=== PATIENT | male | born 1950 | race Caucasian/White ===

== ENCOUNTER 2020-08-12 12:17 | Observation (INO) | payer OTHER ==
[2020-08-12 13:18] LABS: Basophils % 1.3 % (0-1.3); Hematocrit 43.6 % (39.6-49.0); Lymphocytes % 28.5 % (15.3-44.8); MPV 8.9 fL (7.6-11.3); RBC Red Blood Cell Count 4.91 M/uL (4.33-5.43)
[2020-08-12 13:19] LABS: Protime INR 0.98
[2020-08-12] MEDS ORDERED: METOPROLOL TAR 50 MG TAB ONE (13:25)
[2020-08-12] MEDS ORDERED: ENOXAPARIN 100 MG/ML SYR SQ ONE (13:25)
[2020-08-12] MEDS ORDERED: ASPIRIN 81 MG CHEWABLE TABLET ONE (13:25)
[2020-08-12] MEDS ORDERED: FAMOTIDINE 20 MG/2 ML VIAL IV ONE (13:25)
[2020-08-12] MEDS ORDERED: NA CHLORIDE 0.9% 1,000 ML ONE (13:26)
[2020-08-12 13:34] LABS: ALT/SGPT 32 U/L (12-78); AST/SGOT 19 U/L (15-37); Albumin 3.8 g/dL (3.4-5.0); Alkaline Phosphatase 74 U/L (45-117); BUN Blood Urea Nitrogen 20 mg/dL (7-18); Bicarbonate 26 mmol/L (21-32); Bilirubin Direct 0.1 mg/dL (0-0.2); Bilirubin Total 0.5 mg/dL (0.2-1.0); Glucose Level 251 mg/dL (74-106); Lipase 194 U/L (73-393); Magnesium 1.8 mg/dL (1.8-2.4); NT PRO-BNP 81 pg/mL (<125); Potassium 4.1 mmol/L (3.5-5.1); Protein, Total 7.6 g/dL (6.4-8.2); Sodium Level 138 mmol/L (136-145); Troponin (Emerg Dept Use Only) < 0.02 ng/mL (0.0-0.045)
--- NOTE | 2020-08-12 13:36 | ER ---
Nurse's Notes [facility] Name: Tyler Anthony Jr Age: 70 yrs Sex: Male : 1950 Arrival Date: 08/12/2020 Time: 12:19 Bed 17 Private MD: Diagnosis: Chest pain, unspecified;Angina pectoris;Type 2 diabetes mellitus;Essential (primary) hypertension Presentation: 08/12 12:25 Chief complaint: Patient states: L sided CP that began 3-4 days ago. Pt reports that he ss was remodeling and thought maybe it was a pulled muscle, but the pain has not gone away. Pt also reports that he has had more sinus drainage and coughing in the morning for the past 3-4 days as well. Coronavirus screen: Client denies travel out of the [place] in the last 14 days. Ebola Screen: Patient denies exposure to infectious person. Patient denies travel to an Ebola-affected area in the 21 days before illness onset. Initial Sepsis Screen: Does the patient meet any 2 criteria? No. Patient's initial sepsis screen is negative. Does the patient have a suspected source of infection? No. Patient's initial sepsis screen is negative. Risk Assessment: Do you want to hurt yourself or someone else? Patient reports no desire to harm self or others. Onset of symptoms was August 09, 2020. 12:25 Method Of Arrival: Ambulatory ss 12:25 Acuity: HEYDI 3 ss Triage Assessment: 12:30 General: Appears in no apparent distress. comfortable, Behavior is cooperative, bp appropriate for age, anxious. Pain: Complains of pain in left lateral posterior chest and left lateral anterior chest. EENT: No deficits noted. Neuro: No deficits noted. Cardiovascular: Rhythm is sinus rhythm. Respiratory: No deficits noted. GI: No signs and/or symptoms were reported involving the gastrointestinal system. : No signs and/or symptoms were reported regarding the genitourinary system. Derm: No deficits noted. Musculoskeletal: No deficits noted. Historical: - Allergies: 12: No Known Allergies; ss - Home Meds: : Levoxyl 75 mcg Oral tab 1 tab once daily [Active]; allopurinol 300 mg Oral tab 1 tab ss once daily [Active]; repaglinide 2 mg oral tab [Active]; rosuvastatin 20 mg oral tab 1 tab once daily [Active]; Xiqduo [Active]; Vascepa 1 gram oral cap 2 caps 2 times per day [Active]; - PMHx: 12:31 Hypertension; Diabetes - NIDDM; High Cholesterol; Gout; ss - PSHx: 12:31 Appendectomy; Tonsillectomy; ss - Immunization history:: Adult Immunizations up to date. - Social history:: Smoking status: Patient denies any tobacco usage or history of. - Family history:: not pertinent. Screenin:30 Abuse screen: Denies threats or abuse. Denies injuries from another. Nutritional bp screening: No deficits noted. Tuberculosis screening: No symptoms or risk factors identified. Fall Risk None identified. Assessment: 12:30 General: SEE TRIAGE NOTE. bp 13:30 Reassessment: ADMIT INITIATED. Pain: Denies pain. Cardiovascular: Patient's skin is bp warm and dry. Rhythm is sinus rhythm. 14:30 Reassessment: No changes from previously documented assessment. Patient and/or family bp updated on plan of care and expected duration. Pain level reassessed. Patient is alert, oriented x 3, equal unlabored respirations, skin warm/dry/pink. ADMIT IN PROCESS. 16:07 Reassessment: Patient appears in no apparent distress at this time. No changes from bp previously documented assessment. Patient and/or family updated on plan of care and expected duration. Pain level reassessed. REPEAT CARDIAC ENZYMES SENT. ADMIT IN PROCESS. 18:00 Reassessment: Patient appears in no apparent distress at this time. No changes from bp previously documented assessment. Patient and/or family updated on plan of care and expected duration. Pain level reassessed. Patient is alert, oriented x 3, equal unlabored respirations, skin warm/dry/pink. ADMIT IN PROCESS. Vital Signs: 12:25 BP 181 / 98; Pulse 79; Resp 16; Temp 97.3(TE); Pulse Ox 99% on R/A; Weight 106.59 kg; Height 5 ft. 9 in. (175.26 cm); Pain 6/10; 13:30 BP 161 / 91; Pulse 74; Resp 22; Pulse Ox 95% ; bp 14:30 BP 153 / 87; Pulse 61; Resp 23; Pulse Ox 96% ; bp 15:00 BP 153 / 86; Pulse 60; Resp 18; Pulse Ox 98% ; bp 16:00 BP 144 / 77; Pulse 57; Resp 18; Pulse Ox 96% ; bp 18:00 BP 156 / 86; Pulse 61; Resp 18; Pulse Ox 96% ; bp 19:00 BP 162 / 81; Pulse 72; Resp 16; Pulse Ox 96% on R/A; jb4 20:00 BP 150 / 76; Pulse 78; Resp 16; Pulse Ox 98% on R/A; jb4 21:00 BP 160 / 76; Pulse 74; Resp 15; Pulse Ox 99% on R/A; jb4 12:25 Body Mass Index 34.70 (106.59 kg, 175.26 cm) ED Course: 12:19 Patient arrived in ED. ds1 12:27 Triage completed. 12:30 Patient has correct armband on for positive identification. Placed in gown. Bed in low bp position. Call light in reach. Side rails up X2. Adult w/ patient. groundwater monitoring technician on. Pulse ox on. NIBP on. 12:31 Arm band placed on right wrist. ss 12:36 Elmer Salgado, MINDA is Primary Nurse. bp 12:38 Govind Up MD is Attending Physician. wes 13:05 Inserted saline lock: 20 gauge in right forearm, using aseptic technique. Blood bp collected. 13:35 Teena Marks MD is Hospitalizing Provider. [facility] 13:59 XRAY Chest (1 view) In Process Unspecified. EDMS 19:30 Primary Nurse role handed off by Elmer Salgado, RN mw2 19:49 Abner Hunter, MINDA is Primary Nurse. jb4 21:17 No provider procedures requiring assistance completed. Patient admitted, IV remains in sg place. intact, No redness/swelling at site. Patient maintains SpO2 saturation greater than 95% on room air. Administered Medications: 13:05 Drug: NS 0.9% 1000 ml Route: IV; Rate: 125 ml/hr; Site: right forearm; bp 13:05 Drug: Aspirin Chewable Tablet 324 mg Route: PO; bp 16:06 Follow up: Response: No adverse reaction bp 13:05 Drug: Lopressor (metoprolol TARTRATE) 50 mg Route: PO; bp 13:05 Drug: Lovenox 100 mg Route: Sub-Q; Site: right lower abdomen; bp 13:05 Drug: Pepcid 20 mg Route: IVP; Site: right forearm; bp Outcome: 13:35 Decision to Hospitalize by Provider. wes 21:17 Admitted to Tele accompanied by tech, via stretcher, room 213, with chart, Report sg called to Rene PERLA 21:17 Condition: stable 21:17 Instructed on the need for admit, safety practices, Demonstrated understanding of instructions, follow-up care. 21:29 Patient left the ED. mw2 Signatures: Dispatcher [employer] EDMS Cb Robert RN RN Govind Walker MD MD cha Sanford, Demi ds1 Ling Dowell RN RN ss Abner Hunter, RN RN jb4 Elmer Salgado RN RN Mercedes Burch mw2
[2020-08-12] MEDS ORDERED: ALPRAZOLAM 0.25 MG TABLET PO PRN (13:44)
[2020-08-12] MEDS ORDERED: MORPHINE 4 MG/ML SYR IV PRN (13:44)
[2020-08-12] MEDS ORDERED: ACETAMINOPHEN 500 MG TAB PO PRN (13:44)
--- NOTE | 2020-08-12 14:05 | RAD REPORT ---
EXAM DESCRIPTION: RAD - Chest Single View - 08/12/2020 1:59 pm CLINICAL HISTORY: CHEST PAIN Chest pain. COMPARISON: No comparisons FINDINGS: Portable technique limits examination quality. The lungs are grossly clear. The heart is normal in size. No displaced fractures. IMPRESSION: No acute intrathoracic process suspected.
[2020-08-12] MEDS: ENOXAPARIN 40 MG/0.4 ML SQ SCH (15:00)
--- NOTE | 2020-08-12 21:31 | EDPHYS ---
Physician Documentation [facility] Name: Tyler Anthony Jr Age: 70 yrs Sex: Male : 1950 Arrival Date: 08/12/2020 Time: 12:19 Bed 17 Private MD: ED Physician Govind Up HPI: 08/12 13:30 This 70 yrs old Male presents to ER via Ambulatory with complaints of Chest wes Pain. 13:30 The patient or guardian reports chest pain that is located primarily in the anterior wes chest wall, bilaterally. Onset: 3 day(s) ago. The pain does not radiate. Associated signs and symptoms: Pertinent positives: diaphoresis, shortness of breath. The chest pain is described as a pressure, sharp. Duration: The patient or guardian reports multiple episodes, that wax and wane. Modifying factors: The symptoms are alleviated by application of supplemental oxygen, remaining still, the symptoms are aggravated by exertion. Severity of pain: At its worst the pain was mild moderate in the emergency department the pain has improved moderately. The patient has not experienced similar symptoms in the past. Historical: - Allergies: 12:31 No Known Allergies; ss - Home Meds: 12:31 Levoxyl 75 mcg Oral tab 1 tab once daily [Active]; allopurinol 300 mg Oral tab 1 tab ss once daily [Active]; repaglinide 2 mg oral tab [Active]; rosuvastatin 20 mg oral tab 1 tab once daily [Active]; Xiqduo [Active]; Vascepa 1 gram oral cap 2 caps 2 times per day [Active]; - PMHx: 12:31 Hypertension; Diabetes - NIDDM; High Cholesterol; Gout; ss - PSHx: 12:31 Appendectomy; Tonsillectomy; ss - Immunization history:: Adult Immunizations up to date. - Social history:: Smoking status: Patient denies any tobacco usage or history of. - Family history:: not pertinent. ROS: 13:30 Constitutional: Negative for fever, chills, and weight loss, Eyes: Negative for injury, wes pain, redness, and discharge, ENT: Negative for injury, pain, and discharge, Neck: Negative for injury, pain, and swelling, Respiratory: Negative for shortness of breath, cough, wheezing, and pleuritic chest pain, Abdomen/GI: Negative for abdominal pain, nausea, vomiting, diarrhea, and constipation, Back: Negative for injury and pain, : Negative for injury, bleeding, discharge, and swelling, MS/Extremity: Negative for injury and deformity, Skin: Negative for injury, rash, and discoloration, Neuro: Negative for headache, weakness, numbness, tingling, and seizure, Psych: Negative for depression, anxiety, suicide ideation, homicidal ideation, and hallucinations, Allergy/Immunology: Negative for hives, rash, and allergies, Endocrine: Negative for neck swelling, polydipsia, polyuria, polyphagia, and marked weight changes, Hematologic/Lymphatic: Negative for swollen nodes, abnormal bleeding, and unusual bruising. 13:30 Cardiovascular: Positive for chest pain, of the anterior aspect of left upper chest, left lateral anterior chest, left lateral posterior chest and left breast. Exam: 13:30 Constitutional: This is a well developed, well nourished patient who is awake, alert, wes and in no acute distress. Head/Face: Normocephalic, atraumatic. Eyes: Pupils equal round and reactive to light, extra-ocular motions intact. Lids and lashes normal. Conjunctiva and sclera are non-icteric and not injected. Cornea within normal limits. Periorbital areas with no swelling, redness, or edema. ENT: Nares patent. No nasal discharge, no septal abnormalities noted. Tympanic membranes are normal and external auditory canals are clear. Oropharynx with no redness, swelling, or masses, exudates, or evidence of obstruction, uvula midline. Mucous membranes moist. Neck: Trachea midline, no thyromegaly or masses palpated, and no cervical lymphadenopathy. Supple, full range of motion without nuchal rigidity, or vertebral point tenderness. No Meningismus. Chest/axilla: Normal chest wall appearance and motion. Nontender with no deformity. No lesions are appreciated. Cardiovascular: Regular rate and rhythm with a normal S1 and S2. No gallops, murmurs, or rubs. Normal PMI, no JVD. No pulse deficits. Respiratory: Lungs have equal breath sounds bilaterally, clear to auscultation and percussion. No rales, rhonchi or wheezes noted. No increased work of breathing, no retractions or nasal flaring. Abdomen/GI: Soft, non-tender, with normal bowel sounds. No distension or tympany. No guarding or rebound. No evidence of tenderness throughout. Back: No spinal tenderness. No costovertebral tenderness. Full range of motion. Male : Normal genitalia with no discharge or lesions. Skin: Warm, dry with normal turgor. Normal color with no rashes, no lesions, and no evidence of cellulitis. MS/ Extremity: Pulses equal, no cyanosis. Neurovascular intact. Full, normal range of motion. Neuro: Awake and alert, GCS 15, oriented to person, place, time, and situation. Cranial nerves II-XII grossly intact. Motor strength 5/5 in all extremities. Sensory grossly intact. Cerebellar exam normal. Normal gait. Psych: Awake, alert, with orientation to person, place and time. Behavior, mood, and affect are within normal limits. 13:30 Musculoskeletal/extremity: DVT Exam: No signs of deep vein thrombosis. no pain, no swelling, no tenderness, negative Homans' sign noted on exam, no appreciated bluish discoloration, no erythema, no increased warmth. 13:37 ECG was reviewed by the Attending Physician. [facility] Vital Signs: 12:25 BP 181 / 98; Pulse 79; Resp 16; Temp 97.3(TE); Pulse Ox 99% on R/A; Weight 106.59 kg; ss Height 5 ft. 9 in. (175.26 cm); Pain 6/10; 13:30 BP 161 / 91; Pulse 74; Resp 22; Pulse Ox 95% ; bp 14:30 BP 153 / 87; Pulse 61; Resp 23; Pulse Ox 96% ; bp 15:00 BP 153 / 86; Pulse 60; Resp 18; Pulse Ox 98% ; bp 16:00 BP 144 / 77; Pulse 57; Resp 18; Pulse Ox 96% ; bp 18:00 BP 156 / 86; Pulse 61; Resp 18; Pulse Ox 96% ; bp 19:00 BP 162 / 81; Pulse 72; Resp 16; Pulse Ox 96% on R/A; jb4 20:00 BP 150 / 76; Pulse 78; Resp 16; Pulse Ox 98% on R/A; jb4 21:00 BP 160 / 76; Pulse 74; Resp 15; Pulse Ox 99% on R/A; jb4 12:25 Body Mass Index 34.70 (106.59 kg, 175.26 cm) MDM: 12:38 Patient medically screened. wes 13:32 Differential diagnosis: abnormal EKG, acute pericarditis, coronary artery disease wes cholecystitis, Cholelithiasis esophagitis, pancreatitis, pleurisy, pneumonia, pulmonary embolus, stable angina, unstable angina. HEART Score: History: Moderately Suspicious (1), ECG: Non specific repolarization disturbance / LBTB / PM (1), Age: > or = 65 years (2), Risk Factors: > or = 3 Risk factors for atherosclerotic disease (2), [Hypercholesterolemia] [Hypertension] [DM] [+ Family HX] [Obesity] Troponin: < or = 1 x Normal Limit (0). The patient was given aspirin in the Emergency Department. The patient's deep vein thrombosis risk score was calculated as follows: Total Score: 0. This patient was found to be at low risk for a deep vein thrombosis by using the Well's assessment criteria. The patient's pulmonary embolism risk score was calculated as follows: Total Score: 0-2 points. This patient was found to be at low risk for a pulmonary embolism by using the Well's assessment criteria. RONALD Risk Score: 1 - patient's age is greater or equal to 65 years, 1 - Three or more CAD risk factors, 1- Known CAD, 1 - ASA use in past 7 days, 1 - Recent [<24hrs] Severe Angina, TOTAL SCORE = 5. Data reviewed: vital signs, nurses notes, lab test result(s), EKG, radiologic studies, plain films. Data interpreted: site monitor: rate is 79 beats/min, rhythm is regular, Pulse oximetry: on room air is 99 %. Test interpretation: by ED physician or midlevel provider: ECG, plain radiologic studies. Counseling: I had a detailed discussion with the patient and/or guardian regarding: the historical points, exam findings, and any diagnostic results supporting the discharge/admit diagnosis, lab results, radiology results, the need for further work-up and treatment in the hospital. 08/12 12:37 Order name: Basic Metabolic Panel; Complete Time: 14: [facility] 08/12 12:37 Order name: CBC with Diff; Complete Time: 13:29 [facility] 08/12 12:37 Order name: LFT's; Complete Time: 14: [facility] 08/12 12:37 Order name: Magnesium; Complete Time: 14: [facility] 08/12 12:37 Order name: NT PRO-BNP; Complete Time: 14:01 [facility] 08/12 12:37 Order name: PT-INR; Complete Time: 13:29 [facility] 08/12 12:37 Order name: Troponin (emerg Dept Use Only); Complete Time: 14:01 [facility] 08/12 12:37 Order name: Lipase; Complete Time: 14:01 [facility] 08/12 13:51 Order name: CBC with Automated Diff EDMS 08/12 13:51 Order name: CBC with Automated Diff EDMS 08/12 13:51 Order name: Lipid Profile EDMS 08/12 13:51 Order name: Lipid Profile EDMS 08/12 13:51 Order name: Troponin I EDMS 08/12 13:51 Order name: Troponin I EDMS 08/12 12:37 Order name: XRAY Chest (1 view) [facility] 08/12 12:37 Order name: EKG; Complete Time: 12:38 [facility] 08/12 12:37 Order name: Cardiac monitoring; Complete Time: 13:02 [facility] 08/12 12:37 Order name: EKG - Nurse/Tech; Complete Time: 13:02 [facility] 08/12 12:37 Order name: IV Saline Lock; Complete Time: 13:02 [facility] 08/12 12:37 Order name: Labs collected and sent; Complete Time: 13:02 [facility] 08/12 13:51 Order name: Heart Healthy [facility] 08/12 13:51 Order name: Echo with Doppler [facility] 08/12 13:51 Order name: EKG Electrocardiogram [facility] 08/12 13:51 Order name: EKG Electrocardiogram [facility] 08/12 13:51 Order name: Troponin I [facility] 08/12 12:37 Order name: O2 Per Protocol; Complete Time: 13:02 [facility] 08/12 12:37 Order name: O2 Sat Monitoring; Complete Time: 13:01 [facility] EC:37 Rate is 73 beats/min. Rhythm is regular. QRS Karval is Normal. GA interval is normal. QRS wes interval is normal. QT interval is normal. No Q waves. T waves are Normal. No ST changes noted. Clinical impression: Normal ECG and No evidence of ischemia. Interpreted by me. Reviewed by me. Administered Medications: 13:05 Drug: NS 0.9% 1000 ml Route: IV; Rate: 125 ml/hr; Site: right forearm; bp 13:05 Drug: Aspirin Chewable Tablet 324 mg Route: PO; bp 16:06 Follow up: Response: No adverse reaction bp 13:05 Drug: Lopressor (metoprolol TARTRATE) 50 mg Route: PO; bp 13:05 Drug: Lovenox 100 mg Route: Sub-Q; Site: right lower abdomen; bp 13:05 Drug: Pepcid 20 mg Route: IVP; Site: right forearm; bp Disposition: 08/12/20 13:35 Hospitalization ordered by Teena Marks for Observation. Preliminary diagnosis are Chest pain, unspecified, Angina pectoris, Type 2 diabetes mellitus, Essential (primary) hypertension. - Bed requested for Telemetry/MedSurg (Inpatient). - Status is Observation. mw2 - Condition is Fair. - Problem is new. - Symptoms have improved. Signatures: Dispatcher [employer] EDMS Govind Up MD MD cha Smirch, Shelby, RN RN ss Elmer Salgado RN RN bp Mercedes Rivera mw2 Daniela Cervantes Corrections: (The following items were deleted from the chart) 18:43 13:35 Hospitalization Ordered by Teena Marks MD for Observation. Preliminary eb diagnosis is Chest pain, unspecified; Angina pectoris; Type 2 diabetes mellitus; Essential (primary) hypertension. Bed requested for Telemetry/MedSurg (Inpatient). Status is Observation. Condition is Fair. Problem is new. Symptoms have improved. wes 21:29 18:43 08/12/2020 13:35 Hospitalization Ordered by Teena Marks MD for Observation. mw2 Preliminary diagnosis is Chest pain, unspecified; Angina pectoris; Type 2 diabetes mellitus; Essential (primary) hypertension. Bed requested for Telemetry/MedSurg (Inpatient). Status is Observation. Condition is Fair. Problem is new. Symptoms have improved. eb
[2020-08-12 22:05] VITALS: BMI 34.5
[2020-08-12] MEDS: METOPROLOL TAR 25 MG TAB PO SCH (22:21)
[2020-08-13 05:33] LABS: Absolute Lymphocytes (CBC) 2.7 K/uL (0.7-4.9); Basophils % 0.5 % (0-1.3); Hematocrit 41.2 % (39.6-49.0); Lymphocytes % 39.3 % (15.3-44.8); MPV 9.1 fL (7.6-11.3); RBC Red Blood Cell Count 4.59 M/uL (4.33-5.43)
[2020-08-13 05:44] LABS: HDL Cholesterol 32 mg/dL (40-60)
[2020-08-13 06:00] LABS: LDL, Direct 178 mg/dL (100-129)
[2020-08-13 06:26] VITALS: TEMP 97.8
[2020-08-13] MEDS: METOPROLOL TAR 25 MG TAB PO SCH (08:28)
[2020-08-13] MEDS: ENOXAPARIN 40 MG/0.4 ML SQ SCH (08:29)
[2020-08-13 08:33] VITALS: BP 139/70
--- NOTE | 2020-08-13 08:33 | P.HP ---
Certification for Inpatient Patient admitted to: Observation With expected LOS: <2 Midnights Patient will require the following post-hospital care: None Practitioner: I am a practitioner with admitting privileges, knowledge of patient current condition, hospital course, and medical plan of care. Services: Services provided to patient in accordance with Admission requirements found in Title 42 Section 412.3 of the Code of Federal Regulations Patient History Date of Service: 08/12/20 Reason for admission: Chest pain rule out acute coronary syndrome History of Present Illness: Patient is a 62-year-old gentleman who came to the hospital with chest discomfort. Pain was mainly in the sternal region. Patient had radiation down his left arm. Patient's symptoms were present for the last few days so patient decided to come into the emergency room for further evaluation. Patient did not have any nausea, no lightheadedness, no diaphoresis, no shortness of breath, but he did have hot flashes when the chest pain was occurring. This got him concerned so he came to the hospital to get evaluated and his EKGs and troponins at this time have been negative. I spoke with Cardiology after they evaluated the patient and their concern is that it may be musculoskeletal but because of his risk factors they do want him to follow up on Saturday for further cardiac testing at her office. This may include stress test and echocardiogram which were not able to do prior to them leaving per their scheduled hrs. I did advise the patient that if we do discharge him in the morning he needs to return to the emergency room if this chest pain comes back and is persistent. We cannot rule out that he has Coronary artery disease with the testing that we have done the we do know he is not having an acute myocardial infarction. Further testing including stress test and or cardiac catheterization would be needed to confirm if he has Coronary artery disease and to what degree the atherosclerotic disease maybe. This will be evaluated as an outpatient. Allergies No Known Allergies Allergy (Unverified 08/12/20 19:30) Home Medications: Allopurinol 300 mg PO DAILY 08/13/20 Dapagliflozin/Metformin HCl [Xigduo Xr 5 mg-1,000 mg Tablet] 1 each PO BID 08/13/20 Icosapent Ethyl [Vascepa] 2 cap PO BID 08/13/20 Levothyroxine Sodium [Levoxyl] 75 mcg PO DAILY 08/13/20 Repaglinide 2 mg PO DAILY 08/13/20 Rosuvastatin Calcium 20 mg PO DAILY 08/13/20 - Past Medical/Surgical History Has patient received pneumonia vaccine in the past: No Diabetic: Yes -: diabetes- NIDDM -: HTN -: high cholesterol -: gout -: appendectomy -: tonsillectomy - Social History Smoking Status: Never smoker Alcohol use: Yes CD- Drugs: No Caffeine use: Yes Place of Residence: Home Review of Systems 10-point ROS is otherwise unremarkable Physical Examination - Vital Signs Temperature: 97.8 F Blood Pressure: 139/70 Pulse: 58 Respirations: 18 Pulse Ox (%): 97 - Physical Exam General: Alert, In no apparent distress, Oriented x3 HEENT: Atraumatic, PERRLA, Mucous membr. moist/pink, EOMI, Sclerae nonicteric Neck: Supple, 2+ carotid pulse no bruit, No LAD, Without JVD or thyroid abnormality Respiratory: Clear to auscultation bilaterally, Normal air movement Cardiovascular: Regular rate/rhythm, Normal S1 S2, No murmurs Gastrointestinal: Normal bowel sounds, Soft and benign, Non-distended, No tenderness Musculoskeletal: No clubbing, No swelling, No tenderness Integumentary: No rashes Neurological: Normal gait, Normal speech, Normal strength at 5/5 x4 extr, Normal tone, Sensation intact, Cranial nerves 3-12 intact, Normal affect Lymphatics: No axilla or inguinal lymphadenopathy - Studies Laboratory Data (last 24 hrs) 08/12/20 13:00: PT 11.6, INR 0.98 08/12/20 13:00: WBC 7.1, Hgb 14.7, Hct 43.6, Plt Count 188 08/12/20 13:00: Sodium 138, Potassium 4.1, BUN 20 H, Creatinine 1.11, Glucose 251 H, Magnesium 1.8, Total Bilirubin 0.5, AST 19, ALT 32, Alkaline Phosphatase 74, Lipase 194 Assessment & Plan - Problems (Diagnosis) (1) Chest pain, rule out acute myocardial infarction Current Visit: Yes Status: Acute (2) Hypertension Current Visit: Yes Status: Acute (3) Diabetes type 2, controlled Current Visit: Yes Status: Acute (4) Dyslipidemia Current Visit: Yes Status: Acute - Plan 1. Serial troponins and EKG 2. Appreciate Cardiology consultation 3. Outpatient echocardiogram and stress test-he is to show up at cardiology appointment Saturday 4. Anti-platelet therapy, anti coagulation, beta-hansa, statin, and O2 as needed 5. IV morphine for pain 6. Nitro p.r.n. Discharge Plan: Home Plan to discharge in: Greater than 2 days - Advance Directives Does patient have a Living Will: Yes Does patient have a Durable POA for Healthcare: Yes - Code Status/Comfort Care Code Status Assessed: Yes Code Status: Full Code Critical Care: No Time Spent Managing PTS Care (In Minutes): 45
--- NOTE | 2020-08-13 08:38 | P.DS ---
Discharge Date: 08/13/20 Disposition: ROUTINE DISCHARGE Discharge Condition: GOOD Reason for Admission: Chest pain rule out acute coronary syndrome Consultations: Cardiology - Problems (1) Chest pain, rule out acute myocardial infarction Status: Acute (2) Hypertension Status: Acute (3) Diabetes type 2, controlled Status: Acute (4) Dyslipidemia Status: Acute Brief History of Present Illness: Patient is a 62-year-old gentleman who came to the hospital with chest discomfort. Pain was mainly in the sternal region. Patient had radiation down his left arm. Patient's symptoms were present for the last few days so patient decided to come into the emergency room for further evaluation. Patient did not have any nausea, no lightheadedness, no diaphoresis, no shortness of breath, but he did have hot flashes when the chest pain was occurring. This got him concerned so he came to the hospital to get evaluated and his EKGs and troponins at this time have been negative. I spoke with Cardiology after they evaluated the patient and their concern is that it may be musculoskeletal but because of his risk factors they do want him to follow up on Saturday for further cardiac testing at her office. This may include stress test and echocardiogram which were not able to do prior to them leaving per their scheduled hrs. I did advise the patient that if we do discharge him in the morning he needs to return to the emergency room if this chest pain comes back and is persistent. We cannot rule out that he has Coronary artery disease with the testing that we have done the we do know he is not having an acute myocardial infarction. Further testing including stress test and or cardiac catheterization would be needed to confirm if he has Coronary artery disease and to what degree the atherosclerotic disease maybe. This will be evaluated as an outpatient. Hospital Course: Patient is clinically doing well. Patient denies any new complaints at this time. Chest pain has resolved. Spoke with cardiology and they felt like this was related to musculoskeletal pain. At this time, patient is stable for discharge home. Cardiology wants to follow up with him as an outpatient to get cardiac testing performed. Vital Signs/Physical Exam: Temp Pulse Resp BP Pulse Ox 97.8 F 58 18 139/70 97 08/13/20 08:33 08/13/20 08:33 08/13/20 08:33 08/13/20 08:33 08/13/20 08:33 General: Alert, In no apparent distress, Oriented x3 Laboratory Data at Discharge: WBC 6.9 K/uL (4.3-10.9) 08/13/20 05:01 Hgb 13.9 g/dL (13.6-17.9) 08/13/20 05:01 Hct 41.2 % (39.6-49.0) 08/13/20 05:01 Plt Count 182 K/uL (152-406) 08/13/20 05:01 PT 11.6 SECONDS (9.5-12.5) 08/12/20 13:00 INR 0.98 08/12/20 13:00 Sodium 138 mmol/L (136-145) 08/12/20 13:00 Potassium 4.1 mmol/L (3.5-5.1) 08/12/20 13:00 BUN 20 mg/dL (7-18) H 08/12/20 13:00 Creatinine 1.11 mg/dL (0.55-1.3) 08/12/20 13:00 Glucose 251 mg/dL (74-106) H 08/12/20 13:00 Magnesium 1.8 mg/dL (1.8-2.4) 08/12/20 13:00 Total Bilirubin 0.5 mg/dL (0.2-1.0) 08/12/20 13:00 AST 19 U/L (15-37) 08/12/20 13:00 ALT 32 U/L (12-78) 08/12/20 13:00 Alkaline Phosphatase 74 U/L (45-117) 08/12/20 13:00 Troponin I < 0.02 ng/mL (0.0-0.045) 08/13/20 00:57 Triglycerides 612 mg/dL (<150) H 08/13/20 05:01 Cholesterol 288 mg/dL (<200) H 08/13/20 05:01 LDL Cholesterol Direct 178 mg/dL (100-129) H 08/13/20 05:01 HDL Cholesterol 32 mg/dL (40-60) L 08/13/20 05:01 Cholesterol/HDL Ratio 9.00 08/13/20 05:01 Lipase 194 U/L (73-393) 08/12/20 13:00 Home Medications: Allopurinol 300 mg PO DAILY 08/13/20 Aspirin [Ecotrin 81 MG] 162 mg PO DAILY #60 tablet. 08/13/20 Cyclobenzaprine HCl [Flexeril] 5 mg PO TID #30 tablet 08/13/20 Dapagliflozin/Metformin HCl [Xigduo Xr 5 mg-1,000 mg Tablet] 1 each PO BID 08/13/20 Icosapent Ethyl [Vascepa] 2 cap PO BID 08/13/20 Levothyroxine Sodium [Levoxyl] 75 mcg PO DAILY 08/13/20 Methylprednisolone [Medrol dosepack] 4 mg PO DIRECTED #1 richard 08/13/20 Metoprolol Tartrate [Lopressor*] 25 mg PO BID #60 tab 08/13/20 Repaglinide 2 mg PO DAILY 08/13/20 Rosuvastatin Calcium 20 mg PO DAILY 08/13/20 New Medications: Aspirin [Ecotrin 81 MG] 162 mg PO DAILY #60 tablet. Cyclobenzaprine HCl [Flexeril] 5 mg PO TID #30 tablet Metoprolol Tartrate [Lopressor*] 25 mg PO BID #60 tab Methylprednisolone [Medrol dosepack] 4 mg PO DIRECTED #1 richard Patient Discharge Instructions: OK TO DC IV AND DC HOME. FOLLOW-UP WITH PRIMARY CARE PROVIDER IN 1-2 WEEKS. FOLLOW-UP WITH CARDIOLOGY ON SATURDAY MORNING. RETURN TO THE ER IF symptoms worsen. CALL or TEXT DR. VIERA AT [phone] IF ANY QUESTIONS REGARDING HOSPITAL STAY. PLEASE CALL THE FLOOR AT [phone] IF ANY MEDICATION OR NURSING QUESTIONS. Diet: ADA (Heart healthy diet as well) Activity: Ad sharifa Followup: Leoncio Brown MD [ACTIVE - CAN ADMIT] - (Call to make an appointment. ) Gael Fernandez MD [Primary Care Provider] - Time spent managing pt's care (in minutes): 35
[2020-08-13] MEDS ORDERED: ASPIRIN EC 81 MG TAB PO SCH (09:00)
[2020-08-13 09:14] VITALS: O2SAT 94
--- NOTE | 2020-08-13 20:03 | EKG ---
Test Date: 2020-08-12 Test Time: 12:43:32 It Account Manager: VICENTA MEASUREMENT RESULTS: Intervals: Rate: 73 [place]: 174 QRSD: 102 QT: 398 QTc: 438 [place]: P: 36 [place]: 174 QRS: 34 T: 33 INTERPRETIVE STATEMENTS: Normal sinus rhythm Normal ECG No previous ECG available for comparison Electronically Signed On 08-13-20 20:01:27 REACHER by Leoncio Brown
--- NOTE | 2020-08-15 07:56 | CON ---
Date of Consultation: 08/12/2020 Reason For Consultation: Chest pain. History Of Present Illness: Patient is a 70-year-old male, who has not had any previous cardiac hist ory, but has many cardiac risk factors for heart disease including hypertension, dyslipidemia, and di abetes. He came in with left lateral chest pain that has been going on for few days that is worse wi th breathing and touching. No nausea, vomiting, diaphoresis, PND, orthopnea, pedal edema, palpitatio n, or syncope. He occasionally gets short of breath with exertion. He denied any fever or chills or cough. Denied any palpitation or syncope. Allergies: NONE. Review of Systems: Negative. Social History: Negative. Family History: Positive for heart disease. Medications: At home include Xigduo, Vascepa, Crestor, and allopurinol. Physical Examination: General: Very pleasant, no acute distress. Vital Signs: Stable, afebrile. HEENT: Negative. Neck: Supple without any bruit, lymphadenopathy, JVD, or thyromegaly. Chest: Clear to auscultation and percussion. Cardiac: Revealed a regular rhythm and rate. No murmurs, gallops, or rubs. Abdomen: Benign. Extremities: Revealed no clubbing, cyanosis, or edema. Diagnostic Data: Chest x-ray was normal. BNP was normal. Troponin was normal. EKG was normal. Tr iglyceride was 612, cholesterol was 288, LDL was 178, glucose was 270. Impression And Plan: Atypical chest pain in a gentleman with many risk factors for heart disease, po sung-controlled diabetes, poorly-controlled dyslipidemia. He definitely needs workup with an echocar diogram and MPI in the near future, I will make arrangements for both of those. He can go home other vergara whenever it is okay with Dr. Marks. He is on Vascepa for his triglyceride. He is on Crestor as well. We may have to increase his Crestor dose. His diabetes needs to be much better managed. His blood pressure is well controlled. I agree with his present regimen. NB/MODL Voice ID: [id number] Report ID: [id number]
--- NOTE | 2020-08-15 08:36 | ECHO ---
HEIGHT: 5 ft 9 in WEIGHT: 233 lb 12.8 oz DATE OF STUDY: 08/12/[address]: Teena Marks MD 2-DIMENSIONAL: YES M.MODE: YES DOPPLER: YES COLOR FLOW: YES TDS: YES PORTABLE: YES DEFINITY: BUBBLE STUDY: DIAGNOSIS: CHEST PAIN, RULE OUT ACUTE CORONARY SYNDROME CARDIAC HISTORY: CATHERIZATION: NO SURGERY: NO PROSTHETIC VALVE: NO PACEMAKER: NO MEASUREMENTS (cm) DIASTOLIC (NORMALS) SYSTOLIC (NORMALS) IVSd 1.2 (0.6-1.2) LA Diam 3.2 (1.9-4.0) LVEF 50% LVIDd 3.8 (3.5-5.7) LVIDs 2.8 (2.0-3.5) %FS 25% LVPWd 1.2 (0.6-1.2) Ao Diam 3.3 (2.0-3.7) 2 DIMENSIONAL ASSESSMENT: RIGHT ATRIUM: NORMAL LEFT ATRIUM: NORMAL RIGHT VENTRICLE: NORMAL LEFT VENTRICLE: NORMAL TRICUSPID VALVE: NORMAL MITRAL VALVE: NORMAL PULMONIC VALVE: NORMAL AORTIC VALVE: NORMAL PERICARDIAL EFFUSION: NONE AORTIC ROOT: NORMAL LEFT VENTRICULAR WALL MOTION: LOW EJECTION FRACTION DOPPLER/COLOR FLOW: NORMAL COMMENTS: LOW EJECTION FRACTINO 50%. NO EFFUSION. NO MITRAL VALVE PROLAPSE. 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
== END 2020-08-13 10:40 | disposition home or self-care (01) ==
LOC: ER 12:17 → ERHOLD 13:44 → 2ND 21:20
PROVIDERS: ADMIT Hospitalist; ATTEND Hospitalist
DX: R07.89 Other chest pain (principal); I10 Essential (primary) hypertension; E78.5 Hyperlipidemia, unspecified; E11.65 Type 2 diabetes mellitus with hyperglycemia; Z79.84 Long term (current) use of oral hypoglycemic drugs; Z20.828 Contact with and (suspected) exposure to other viral communicable diseases; E78.00 Pure hypercholesterolemia, unspecified; M10.9 Gout, unspecified
CPT/HCPCS: 93005 ×2; 93306; 85025 ×2; 80048; 36415; 83721; 83735; 85610; 80061; 82947 ×2; 80076; 84484 ×3; 83690; 83880; 71045; 96372; 96374; 99285; U0002; J1650 ×2; J7030; G0378 ×2